=== PATIENT | female | born 1950 | race Caucasian/White ===

== ENCOUNTER → 2017-10-27 | Outpatient (CLI) | payer OTHER, MEDICAID | LOC: FIMAGING 09:57 | PROVIDERS: ATTEND Surgery | DX: K80.21 Calculus of gallbladder without cholecystitis with obstruction (principal) ==

== ENCOUNTER 2017-11-07 06:06 | Day surgery (SDC) | payer OTHER, MEDICAID ==
[2017-11-07] MEDS ORDERED: LR 1,000 ML IV ONE (06:29)
[2017-11-07] MEDS ORDERED: LIDOCAINE 1% 2 ML INJ ID PRN (06:29)
[2017-11-07] MEDS ORDERED: BUPIVACAINE 0.25% 30 ML SDV ONE (06:54)
[2017-11-07] MEDS ORDERED: MIDAZOLAM 2 MG/2 ML VIAL IVP ONE (07:19)
--- NOTE | 2017-11-07 07:21 | PDANEPAE ---
ANE History of Present Illness cholecystitis ANE Past Medical History - Cardiovascular History Hx Hypertension: No Hx Arrhythmias: No Hx Chest Pain: No Hx Coronary Artery / Peripheral Vascular Disease: No Hx CHF / Valvular Disease: No Hx Palpitations: No - Pulmonary History Hx COPD: No Hx Asthma/Reactive Airway Disease: No Hx Recent Upper Respiratory Infection: No Hx Oxygen in Use at Home: No Hx Sleep Apnea: No Sleep Apnea Screening Result - Last Documented: Negative - Neurologic History Hx Cerebrovascular Accident: No Hx Seizures: No Hx Dementia: No - Endocrine History Hx Diabetes: No - Renal History Hx Renal Disorders: No Renal History Comment: REMOTE UTI'S - Liver History Hx Hepatic Disorders: No Hepatic History Comment: 05/2017 GALLSTONES SYMPTOMS - Neurological & Psychiatric Hx Hx Neurological and Psychiatric Disorders: No - Cancer History Hx Cancer: No - Congenital Disorder History Hx Congenital Disorders: No - GI History Hx Gastrointestinal Disorders: Yes Gastrointestinal History Comment: ULCERATIVE COLITIS SINCE 1989 - Other Health History Other Health History: ROSACEA. GUM DX MISSING TEETH/PARTIAL DENTURES IN PLACE - Chronic Pain History Chronic Pain: No - Surgical History Prior Surgeries: LT LEG ORIF WITH POST HARDWARE REMVL 2014. TONSILLECTOMY ANE Review of Systems Review of Systems: - Exercise capacity METS (RN): 4 METS ANE Patient History - Allergies Allergies/Adverse Reactions: ampicillin Allergy (Verified 11/07/17 06:48) Rash Corticosteroids (Glucocorticoids) Allergy (Verified 11/07/17 06:48) LOSS OF MENSES,OUTSIDE OF NOSE BECOMES RAW - Home Medications Home Medications: Digestive Enzymes DAILY 10/28/17 [Last Taken Unknown] Herbals/Supplements -Info Only DAILY 10/28/17 [Last Taken Unknown] - NPO status NPO Since - Liquids (Date): 11/06/17 NPO Since - Liquids (Time): 22:00 NPO Since - Solids (Date): 11/06/17 NPO Since - Solids (Time): 22:00 - Smoking Hx Smoking Status: Former smoker ANE Labs/Vital Signs - Vital Signs Blood Pressure: 147/69 Heart Rate: 56 Respiratory Rate: 18 O2 Sat (%): 95 Height: 167.64 cm Weight: 65.771 kg ANE Physical Exam - Airway Neck exam: FROM Mallampati Score: Class 2 Mouth exam: normal dental/mouth exam, dentures - Pulmonary Pulmonary: no respiratory distress - Cardiovascular Cardiovascular: regular rate and rhythym - ASA Status ASA Status: II ANE Anesthesia Plan Anesthesia Plan: general endotracheal anesthesia
[2017-11-07] MEDS ORDERED: MIDAZOLAM 2 MG/2 ML VIAL ONE (07:22)
[2017-11-07] MEDS ORDERED: ROCURONIUM 50 MG/5 ML VIAL ONE (07:29)
[2017-11-07] MEDS ORDERED: fentaNYL 100 MCG/2 ML INJ ONE ×3 (07:29→08:44)
[2017-11-07] MEDS ORDERED: ONDANSETRON 4 MG/2 ML VIAL ONE (07:29)
[2017-11-07] MEDS ORDERED: DEXAMETHASONE 4 MG/ML VIAL ONE (07:29)
[2017-11-07] MEDS ORDERED: PROPOFOL 200 MG/20 ML VIAL ONE (07:29)
[2017-11-07] MEDS ORDERED: CEFAZOLIN 1 GM/DEXTROSE/50 ML BAG IV ONE (07:29)
[2017-11-07] MEDS ORDERED: ceFAZolin 1 GM in NS 100 ML IV ONE (07:31)
--- NOTE | 2017-11-07 07:32 | PDHPUP ---
History & Physical Update H&P update statement: This history and physical update is based on an assessment of the patient which was completed after admission or registration (within 24 hours), but prior to the surgery/procedure. H&P update: H&P reviewed & patient examined, no change in patient's condition since H&P completed
[2017-11-07] MEDS ORDERED: HYDROmorphONE/DILAUDID 2 MG/ML INJ ONE (07:34)
[2017-11-07] MEDS ORDERED: HYDROmorphONE/DILAUDID 1 MG/ML INJ IVP PRN (08:11)
[2017-11-07] MEDS ORDERED: DEXAMETHASONE 4 MG/ML VIAL IVP PRN (08:11)
[2017-11-07] MEDS ORDERED: NALOXONE HCL 0.4 MG/ML INJ IVP PRN (08:11)
[2017-11-07] MEDS ORDERED: ONDANSETRON 4 MG/2 ML VIAL IVP PRN (08:11)
[2017-11-07] MEDS ORDERED: PHENYLEPHRINE HCL 100 MCG/ML SYR ONE (08:15)
--- NOTE | 2017-11-07 08:35 | POSTANESTH ---
Post Anesthetic Evaluation Cardiovascular Status: Normal, Stable Respiratory Status: Normal, Stable Level of Consciousness/Mental Status: Can Participate in Eval Pain Control: Adequate, Prn Tx Ordered Nausea/Vomiting Control: Adequate, Prn Tx Ordered Complications Possibly Related to Anesthesia: None Noted
[2017-11-07] MEDS: fentaNYL 100 MCG/2 ML INJ IVP PRN ×2 (08:48→09:17)
--- NOTE | 2017-11-07 09:06 | GOP ---
[f rep st] OPERATIVE REPORT DATE OF OPERATION: 11/07/2017 SURGEON: Olman Long MD MACHINERY MECHANIC: Gilberto Vincent, [employer], [facility], whose presence was requested by me and medically necessary for the safe and timely completion of this case. ANESTHESIA: General endotracheal anesthesia per Dr. Torrez. PREOPERATIVE DIAGNOSIS: Symptomatic cholelithiasis. POSTOPERATIVE DIAGNOSIS: Symptomatic cholelithiasis. PROCEDURE PERFORMED: Laparoscopic cholecystectomy. FINDINGS: The patient had multiple gallstones and minimal inflammation of the gallbladder. No other lesions were identified. ESTIMATED BLOOD LOSS: 20 cc. INDICATIONS: 67-year-old female with a history of abdominal pain. Ultrasound demonstrated gallstone s. Risks and benefits of the procedure were discussed with the patient, all questions were answered and she wished to proceed. DESCRIPTION OF PROCEDURE: The patient was in the supine position. After the induction of adequate g eneral endotracheal anesthesia, the patient was prepped and draped in the standard surgical fashion. The supraumbilical area was infiltrated with 0.5% Marcaine for local anesthesia. A 5-mm incision wa s made and the abdominal wall was elevated. A Veress needle was inserted and after noting proper pre ssures, the abdomen was insufflated with carbon dioxide. A 5-mm trocar was passed and the camera foll owed. There was no apparent damage with trocar placement. Three more ports were placed; two 5-mm po rts in the right subcostal area, and one 11-mm port in the subxiphoid area. These were all placed du ring direct vision after injecting 0.5% Marcaine for local anesthesia. The gallbladder was then grasped and elevated. Adhesions were taken down using blunt dissection and cautery. The cystic structures were carefully dissected in a similar fashion. The cystic duct and c ystic artery were clearly identified. In addition, the subhepatic space was dissected. Once this cri tical view was obtained, the cystic duct and cystic artery were clipped and transected with scissors. The gallbladder was then elevated off the liver bed using cautery and blunt dissection. It was wit hdrawn through the subxiphoid port. The abdomen was then inspected and good hemostasis was noted. The fascia at the 11-mm port site was closed using 0 Vicryl in an interrupted fashion. All trocars were removed under direct vision, and t he pneumoperitoneum was allowed to escape. The wounds were thoroughly irrigated and the skin was tylor sed with 5-0 Monocryl in a subcuticular stitch. Needle and sponge counts were correct. The wounds w ere sterilely dressed. The patient was extubated and taken to the post-anesthesia care unit in stabl e condition. COMPLICATIONS: None. DRAINS: None. /[id number]/MODL
[2017-11-07 09:48] VITALS: BP 151/77
== END 2017-11-07 09:55 | disposition home or self-care (01) ==
LOC: FSGY 06:06
PROVIDERS: ATTEND Surgery
PROC: 0FT44ZZ Resection of Gallbladder, Percutaneous Endoscopic Approach (ICD-10-PCS; principal; 2017-11-07 07:30)
DX: K80.10 Calculus of gallbladder with chronic cholecystitis without obstruction (principal)
CPT/HCPCS: J0690; J1100; J1170; J2250; J2370; J2405; J2704; J3010